=== PATIENT | female | born 1985 | race Caucasian/White ===

== ENCOUNTER 2016-07-14 15:39 | Emergency (ER) | payer OTHER | END 2016-07-14 18:30 | disposition home or self-care (01) | DX: O20.0 Threatened abortion (principal); Z3A.01 Less than 8 weeks gestation of pregnancy; R03.0 Elevated blood-pressure reading, without diagnosis of hypertension ==

== ENCOUNTER 2016-08-03 22:40 | Inpatient (IN) | payer OTHER ==
[2016-08-03] MEDS ORDERED: SODIUM CHLORIDE 0.9% 1,000 ML IV ONE (23:30)
[2016-08-04] MEDS ORDERED: PANTOPRAZOLE 40 MG VIAL IVP STA (01:17)
[2016-08-04] MEDS ORDERED: PANTOPRAZOLE 40 MG VIAL ONE (01:23)
[2016-08-04] MEDS ORDERED: MORPHINE 2 MG/ML SYRINGE ONE ×2 (02:21→03:10)
[2016-08-04] MEDS ORDERED: MORPHINE 2 MG/ML SYRINGE IVP STA ×2 (02:24→03:09)
[2016-08-04] MEDS ORDERED: SODIUM CHLORIDE 0.9% 1,000 ML IV STA ×3 (02:24→04:51)
[2016-08-04] MEDS ORDERED: ROCURONIUM 50 MG/5 ML VIAL IVP ONE (07:00)
[2016-08-04] MEDS ORDERED: MIDAZOLAM 2 MG/2 ML VIAL IVP ONE (07:00)
[2016-08-04] MEDS ORDERED: SUCCINYLCHOLINE 200 MG/10 ML VIAL IVP ONE (07:00)
[2016-08-04] MEDS ORDERED: NEOSTIGMINE 1 MG/1 ML 10 ML MDV IVP ONE (07:00)
[2016-08-04] MEDS ORDERED: fentaNYL 100 MCG/2 ML VIAL IVP ONE (07:00)
[2016-08-04] MEDS ORDERED: PROPOFOL 200 MG/20 ML VIAL IVP ONE (07:00)
[2016-08-04] MEDS ORDERED: ONDANSETRON 4 MG/2 ML VIAL IVP ONE (07:00)
[2016-08-04] MEDS ORDERED: LIDOCAINE-PF 2% 10 ML AMP SUBQ ONE (07:00)
[2016-08-04] MEDS ORDERED: DEXAMETHASONE 4 MG/ML VIAL IVP ONE (07:00)
[2016-08-04] MEDS ORDERED: GLYCOPYRROLATE 1 MG/5 ML VIAL IVP ONE (07:00)
[2016-08-04] MEDS ORDERED: ceFAZolin 1 GM VIAL IV ONE (07:00)
[2016-08-04] MEDS ORDERED: BUPIVACAINE 0.25%-EPI 1:200000 PF 30 ML VIAL SUBQ ONE ×2 (07:28)
[2016-08-04] MEDS ORDERED: LACTATED RINGERS 1,000 ML IV ONE ×2 (07:32→09:16)
[2016-08-04] MEDS ORDERED: fentaNYL 100 MCG/2 ML VIAL ONE (09:46)
[2016-08-04] MEDS ORDERED: ALBUTEROL NEB 2.5 MG/3 ML INH PRN (10:58)
[2016-08-04] MEDS ORDERED: SODIUM CHLORIDE FLUSH 0.9% 10 ML SYRINGE IVP PRN (10:58)
[2016-08-04] MEDS ORDERED: HYDROmorphone 1 MG/ML SYRINGE IVP PRN (10:58)
[2016-08-04] MEDS ORDERED: ONDANSETRON ODT 4 MG TABLET TL PRN (10:58)
[2016-08-04] MEDS ORDERED: DEXTROSE 5%-0.9% NACL 1,000 ML IV SCH (11:00)
[2016-08-04] MEDS ORDERED: ACETAMINOPHEN 1,000 MG/100 ML 100 ML IV ONE (11:58)
[2016-08-04] MEDS ORDERED: CALCIUM GLUCONATE 1,000 MG in SODIUM CHLORIDE 0.9% 50 ML IV ONE (12:30)
[2016-08-04] MEDS ORDERED: oxyCODONE 5 MG TABLET PO PRN (12:50)
[2016-08-04] MEDS: SODIUM CHLORIDE FLUSH 0.9% 10 ML SYRINGE IVP SCH ×2 (13:01→23:07)
[2016-08-04] MEDS: KETOROLAC 30 MG/ML VIAL IVP PRN (13:13)
[2016-08-04] MEDS ORDERED: CALCIUM GLUCONATE 2,000 MG in SODIUM CHLORIDE 0.9% 100ML 100 ML IV ONE (17:45)
[2016-08-04] MEDS ORDERED: SODIUM CHLORIDE 0.9% 500 ML IV ONE (18:45)
[2016-08-04] MEDS: DEXTROSE 5%-0.9% NACL 1,000 ML IV SCH (20:17)
[2016-08-04] MEDS: FAMOTIDINE 20 MG TABLET PO SCH (20:25)
[2016-08-05] MEDS: KETOROLAC 30 MG/ML VIAL IVP PRN ×2 (02:38→16:05)
[2016-08-05] MEDS: DEXTROSE 5%-0.9% NACL 1,000 ML IV SCH (02:40)
[2016-08-05] MEDS ORDERED: diphenhydrAMINE INJ 50 MG/ML VIAL IVP PRN (03:30)
[2016-08-05] MEDS: oxyCOD/ACETAMIN 5 MG/325 MG TABLET PO PRN ×2 (06:11→18:16)
[2016-08-05] MEDS ORDERED: IOPAMIDOL-300 100 ML VIAL IVP ONE (08:26)
[2016-08-05] MEDS ORDERED: FAMOTIDINE 20 MG TABLET PO SCH (09:00)
[2016-08-05] MEDS: FAMOTIDINE 20 MG TABLET PO SCH (09:39)
[2016-08-05] MEDS ORDERED: CALCIUM CARBONATE CHEW 500 MG TABLET PO PRN (12:57)
[2016-08-05] MEDS ORDERED: MAGNESIUM SULFATE 2 GM in SODIUM CHLORIDE 0.9% 100 ML IV ONE (13:14)
[2016-08-05] MEDS ORDERED: MAGNESIUM SULFATE 2 GRAM 50 ML IV ONE (13:30)
[2016-08-05] MEDS ORDERED: CALCIUM GLUCONATE 2,000 MG in SODIUM CHLORIDE 0.9% 100ML 100 ML IV ONE (14:00)
[2016-08-05] MEDS: SODIUM CHLORIDE FLUSH 0.9% 10 ML SYRINGE IVP SCH ×3 (14:46→16:06)
[2016-08-06] MEDS: KETOROLAC 30 MG/ML VIAL IVP PRN (00:30)
[2016-08-06] MEDS: SODIUM CHLORIDE FLUSH 0.9% 10 ML SYRINGE IVP SCH (06:32)
[2016-08-06] MEDS: oxyCOD/ACETAMIN 5 MG/325 MG TABLET PO PRN (07:51)
[2016-08-06] MEDS: FAMOTIDINE 20 MG TABLET PO SCH (07:51)
== END 2016-08-06 09:06 | disposition home or self-care (01) | DRG 777 ==
PROC: 0UT54ZZ Resection of Right Fallopian Tube, Percutaneous Endoscopic Approach (ICD-10-PCS; principal; 2016-08-04 06:00)
PROC: 10T24ZZ Resection of Products of Conception, Ectopic, Percutaneous Endoscopic Approach (ICD-10-PCS; principal; 2016-08-04 06:00)
PROC: 30233N1 Transfusion of Nonautologous Red Blood Cells into Peripheral Vein, Percutaneous Approach (ICD-10-PCS; 2016-08-05)
DX: O00.10 Tubal pregnancy without intrauterine pregnancy (principal); O08.1 Delayed or excessive hemorrhage following ectopic and molar pregnancy; D62 Acute posthemorrhagic anemia; O90.81 Anemia of the puerperium; O90.89 Other complications of the puerperium, not elsewhere classified; E83.51 Hypocalcemia; E83.42 Hypomagnesemia

== ENCOUNTER 2016-08-11 10:16 | Outpatient (CLI) | payer OTHER | END 2016-08-11 10:17 | disposition home or self-care (01) | DX: O00.90 Unspecified ectopic pregnancy without intrauterine pregnancy (principal) ==

== ENCOUNTER 2016-08-15 11:33 | Outpatient (CLI) | payer OTHER | END 2016-08-15 11:34 | disposition home or self-care (01) | DX: O00.81 Other ectopic pregnancy with intrauterine pregnancy (principal) ==

== ENCOUNTER 2016-08-22 10:08 | Outpatient (CLI) | payer OTHER | END 2016-08-22 10:09 | disposition home or self-care (01) | DX: O00.10 Tubal pregnancy without intrauterine pregnancy (principal) ==

== ENCOUNTER 2016-08-29 15:51 | Outpatient (CLI) | payer OTHER | END 2016-08-29 15:52 | disposition home or self-care (01) | DX: O00.90 Unspecified ectopic pregnancy without intrauterine pregnancy (principal) ==